=== PATIENT | female | born 1955 | race Caucasian/White ===

== ENCOUNTER 2017-02-28 07:40 | Day surgery (SDC) | payer OTHER ==
[~2017-02-28] VITALS: Ht 149.9 cm; Wt 49.6 kg
[2017-02-28 08:40] VITALS: Ht 149.9 cm; Wt 49.6 kg
[2017-02-28] MEDS ORDERED: cyclobenzaprine PO (08:46)
[2017-02-28] MEDS ORDERED: gabapentin PO (08:46)
[2017-02-28] MEDS ORDERED: donepezil PO (08:46)
[2017-02-28] MEDS ORDERED: simvastatin (08:46)
[2017-02-28] MEDS ORDERED: diclofenac PO (08:46)
[2017-02-28] MEDS ORDERED: vit D3 PO (08:47)
[2017-02-28] MEDS ORDERED: simvastatin PO (08:47)
[2017-02-28] MEDS ORDERED: PROPOFOL 40 ML ONE (09:03)
[2017-02-28 09:09] VITALS: BP 107/72; PULSE 75; RESP 22
[2017-02-28 09:55] VITALS: BP 140/70; PULSE 70; RESP 15
--- NOTE | 2017-02-28 11:36 | GILP ---
DATE OF PROCEDURE: PROCEDURE PERFORMED: Colonoscopy with biopsy. INDICATION: A 62-year-old female undergoing this procedure for screening colonoscopy. The risk of the procedure, related and unrelated complications, anesthetic risks and alternatives discussed and informed consent was obtained. DESCRIPTION OF PROCEDURE: The patient was brought to the GI lab, sedated by the anesthesiologist. After optimum sedation, scope was passed with much ease into rectum, advanced through sigmoid, desce nding, transverse colon all the way into cecum. Peeped into terminal ileum, which was normal. She had diverticula, large amount on the right side of the colon. Appendix was normal. Rest of the col on appeared normal. While coming out, mucosa thoroughly inspected. She also had diverticulosis of moderate degree on th e left side of the colon, hemorrhoids, small, identified. There was a flat polyp in the rectum, suc cessfully removed by jumbo biopsy forceps. Mucosa was normal throughout. IMPRESSION: 1. Diverticulosis both right and left side of the colon; some of them are large-mouthed and left si de of the colon was of moderate severity. 2. Small hemorrhoids. PLAN: Review histopathology and continue present pathology and patient should be on Metamucil on a regular basis. Dictated By: CRISTIANE KUMAR/SAQIB Conf#: [id number] DID#: [id number] CC: CRISTIANE KEYES MD; Malcolm Odell MD;*End*
== END 2017-02-28 16:38 | disposition home or self-care (01) ==
LOC: GIL 07:40
PROVIDERS: ATTEND Internal Medicine Gastroenterology
DX: Z12.11 Encounter for screening for malignant neoplasm of colon (principal); D12.7 Benign neoplasm of rectosigmoid junction; K64.9 Unspecified hemorrhoids; E78.5 Hyperlipidemia, unspecified
CPT/HCPCS: 45380; 88305; Z7610